=== PATIENT | male | born 1990 | race Two or more races ===

== ENCOUNTER 2024-08-17 09:30 | Day surgery (SDC) | payer MEDICAID ==
[~2024-08-17] VITALS: Ht 182.9 cm; Wt 95.4 kg
[~2024-08-17 09:30] MED LIST: LIDOCAINE/PF 2% 5 ML VIAL ONE; PROPOFOL 1% 20 ML VIAL IVP ONE
== END 2024-08-17 12:42 | disposition home or self-care (01) ==
LOC: SURGERY 09:30
PROVIDERS: ATTEND Internal Medicine Gastroenterology
DX: K21.00 Gastro-esophageal reflux disease with esophagitis, without bleeding (principal); R19.6 Halitosis; K29.70 Gastritis, unspecified, without bleeding; K44.9 Diaphragmatic hernia without obstruction or gangrene; Z98.890 Other specified postprocedural states
CPT/HCPCS: 43239; 88313; 88305; 88312; J2704; J3490